=== PATIENT | male | born 1960 | race Caucasian/White ===

== ENCOUNTER 2017-02-11 15:45 | Observation (INO) ==
[2017-02-11] MEDS ORDERED: Aspirin 81 MG TAB.CHEW PO ONE (15:52)
--- NOTE | 2017-02-11 15:53 | Emergency Department Note ---
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 Patient was in the hospital accompanying his mother who was getting a heart catheterization. She did ended up with one stpent. While he was waiting to see his mother, he told the medical staff that he was not feeling well. He was diaphoretic, a little lightheaded and reports some left chest discomfort. Nursing staff took his blood pressure which was 60/40. He appeared pale and diaphoretic as well, per reports. He denies any shortness of breath or sudden headache. Denies any fall or use of anticoagulants. No prior history of cardiac ischemic disease. Denies any recent fevers or illness. No history of diabetes. He presents here to the ED in no acute distress. He states he feels a lot better. Continues to have some chest discomfort. He has a family history of cardiac disease per his mother. Denies any history of blood clots, cancer, recent long- distance travel, surgery or hospitalizations. He has a patient at the [facility]. Recently had his amlodipine increase within the past week. He states he does have these episodes were his blood pressure goes lower throughout the night, but denies any passing out Pain Scale: 0 - Related Data Home Medications Medication Instructions Recorded Confirmed HYDROcodone/Acet 5/325 mg [Fife 1 tab PO TID PRN 10/05/16 02/11/17 5-325 mg] Losartan [Cozaar] 75 mg PO DAILY 10/05/16 02/11/17 Amlodipine Besylate 10 mg PO DAILY 02/11/17 02/11/17 Aspirin Enteric Coated [Aspirin EC] 81 mg PO DAILY 02/11/17 02/11/17 Multivitamin [One Daily Essential] 1 each PO DAILY 02/11/17 02/11/17 Naproxen [Naprosyn] 500 mg PO BID 02/11/17 02/11/17 Allergies Allergy/AdvReac Type Severity Reaction Status Date / Time lisinopril Allergy Rash Verified 10/05/16 10:42 Penicillins [PCN] Allergy Hives Verified 09/21/15 13:49 All systems ED: reviewed and negative except as stated. Review of Systems: As Per HPI Constitutional: Reports: weakness. Denies: fever, chills Eyes: Denies: eye pain, vision change ENT ED: Denies: congestion, dysphagia Cardiovascular: Reports: chest pain. Denies: dyspnea on exertion Respiratory: Denies: cough, dyspnea Gastrointestinal: Reports: nausea. Denies: abdominal pain, vomiting, diarrhea Genitourinary: Denies: urgency, dysuria Musculoskeletal: Denies: back pain, neck pain Integumentary: Denies: rash, abrasion Neurological: Reports: weakness. Denies: headache, vertigo Psychiatric: Denies: anxiety, depression Endocrine: Denies: fatigue, heat or cold intolerance Past Medical History - Past Medical History Attestation: Yes The following information was validated with the patient. Source: patient Medical history: Reports: hypertension Psychiatric history: Reports: no psych history - Social History Smoking Status: Former smoker Smokeless Tobacco Status: No Alcohol use: Reports: none Physical Exam - General Limitations: no limitations General appearance: alert, in no apparent distress - Head Head exam: atraumatic, normocephalic, normal inspection - Eye Eye exam: Present: normal appearance, PERRL, EOMI - ENT ENT exam: normal exam, normal oropharynx, mucous membranes moist - Neck Neck exam: Present: normal inspection, full ROM, trachea midline - Chest Chest inspection: Present: normal inspection, symmetric chest wall rise. Absent : tenderness - Respiratory Respiratory exam: Present: normal lung sounds bilaterally. Absent: respiratory distress, wheezes - Cardiovascular Cardiovascular exam: Present: regular rate, normal rhythm, normal heart sounds - Abdominal Exam Abdominal exam: Present: soft, Non-Tender, normal bowel sounds. Absent: tenderness, distention, guarding, rebound, rigidity - Extremities Exam Extremities exam: Present: normal inspection, full ROM, normal capillary refill. Absent: tenderness, pedal edema, calf tenderness - Back Exam Back exam: Present: normal inspection, full ROM. Absent: tenderness - Neurological Exam Neurological exam: Present: alert, oriented X3, CN II-XII intact - Expanded Neurological Exam Patient oriented to: Present: person, place, time Speech: Present: fluid speech Cranial nerves: EOM function (II, III, IV, ): Normal, facial sensation (V): Normal, facial palsy (VII): Normal, gag reflex (IX): Normal, spinal accessory function (XI): Normal, tongue deviation (XII): Normal Cerebellar function: finger to nose: Normal, heel to melo: Normal Motor strength - LUE: 5/5 Motor strength - RUE: 5/5 Motor strength - LLE: 5/5 Motor strength - RLE: 5/5 Upper motor neuron exam: marie neglect: Absent bilaterally Sensory exam upper extremity: light touch: Normal Sensory exam lower extremity: light touch: Normal - Psychiatric Psychiatric exam: Present: normal affect, normal mood - Skin Skin exam: Present: warm, dry, intact, normal color. Absent: rash, cyanosis, diaphoresis Course Course Narrative: 56-year-old man with history of hypertension, former smoker in family cardiac history presents to the ED for presyncopal episode with chest discomfort. Symptoms have subsided. Describes a dull ache in the left chest. HEART score 4 pending troponin. Neurologic exam is normal without any focal neural deficits. No systolic murmurs heard on auscultation or with Valsalva maneuver. He is in otherwise no acute distress. Chest pain workup initiated. His blood pressure here is normal 130/85. Disposition pending workup. Patients in agreement with this plan. He has been given a full dose aspirin. - Reevaluation(s) Reevaluation #1: Patient is chest pain free. He is tolerating oral intake. Due to the chest discomfort will repeat a delta 3 hour troponin at 1900. Patients in agreement with this plan. He will likely need admission for his symptoms. We offered him admission and he has kindly declined. He will likely need a leaving against medical advice. Discuss risks and benefits for hospitalization vs AMA. Patients were these risks and would still like to go home. Further evaluation would include cardiac monitoring, further testing such as stress tests or echocardiogram. Patients awake alert and oriented in fully capable making medical decisions. Will readdress this upon further laboratory results. Time: 18:30 Reevaluation #2: Reevaluated patient at bedside. Symptoms have resolved. His creatinine was slightly elevated he has received 1 L bolus. He continues to feel asymptomatic. However given his symptoms earlier today recommend admission and further evaluation. He is now in agreement with admission. Impression is pre- syncope and chest pain. - Consultations Consultation #1: Spoke with on-call hospitalist nancy Randle to admit for presyncope and chest pain. No further orders at this time Time: 20:02 Vital Signs Temperature 98.1 F 02/11/17 15:46 Pulse Rate 93 02/11/17 15:46 Respiratory Rate 18 02/11/17 15:46 Blood Pressure 130/85 02/11/17 15:46 O2 Sat by Pulse Oximetry 94 02/11/17 15:46 Temperature 98.8 F 02/12/17 07:03 Pulse Rate 96 02/12/17 07:03 Respiratory Rate 20 02/12/17 07:03 Blood Pressure 127/83 02/12/17 07:03 O2 Sat by Pulse Oximetry 94 02/12/17 07:03 Oxygen Delivery Oxygen Delivery Room Air Medical Decision Making - MDM Narrative Medical decision making narrative: Patient's case was discussed with my attending physician agrees with their ED management and final disposition. They independently evaluated patient. Please refer to their attestation to this encounter for additional information. This note was generated by [employer] voice recognition software and as result grammatical or spelling errors may occur using this program. - Medical Records Medical records reviewed: Yes I reviewed the patient's medical records. - Lab Data Lab results reviewed: Yes I reviewed the patient's lab results. Result diagrams: 02/11/17 16:03 02/12/17 00:31 Lab Results 02/11/17 02/11/17 02/11/17 Range/Units 16:03 16:03 16:03 WBC 7.4 (4.3-11.1) K/mcL RBC 4.83 (4.19-5.50) M/mcL Hgb 15.1 (12.9-16.9) g/dL Hct 44.0 (37.5-50.1) % MCV 91.1 (83.0-100.0) fL MCH 31.3 (28.0-33.3) pg MCHC 34.3 (31.6-35.5) g/dL RDW 12.5 (11.5-14.5) % Plt Count 254 (140-400) K/mcL MPV 10.1 (9.4-12.4) fL Immature Gran % 0.1 (0-4) % Seg Neutrophils % 63.9 % Lymphocytes % 21.5 % Monocytes % 10.6 % Eosinophils % 3.4 % Basophils % 0.5 % Neutrophils # 4.7 (1.6-8.9) K/mcL Lymphocytes # 1.6 (0.6-4.6) K/mcL Monocytes # 0.8 (0.0-1.3) K/mcL Eosinophils # 0.3 (0.0-0.6) K/mcL Basophils # 0.0 (0.0-0.2) K/mcL Sodium 139 (136-145) mEq/L Potassium 3.8 (3.5-4.5) mEq/L Chloride 105 (98-109) mEq/L Carbon Dioxide 25 (19-29) mEq/L BUN 15 (8-26) mg/dL Creatinine 1.35 H (0.72-1.25) mg/dL Est GFR ( Amer) > 60 (> 60) Est GFR (Non-Af Amer) 55 L (> 60) BUN/Creatinine Ratio 11 (6-26) Glucose 140 H (70-99) mg/dL Calculated Osmolality 291 (280-300) Calcium 9.4 (8.6-10.8) mg/dL Troponin I 0.00 (0-0.03) ng/mL 02/11/17 Range/Units 18:48 WBC (4.3-11.1) K/mcL RBC (4.19-5.50) M/mcL Hgb (12.9-16.9) g/dL Hct (37.5-50.1) % MCV (83.0-100.0) fL MCH (28.0-33.3) pg MCHC (31.6-35.5) g/dL RDW (11.5-14.5) % Plt Count (140-400) K/mcL MPV (9.4-12.4) fL Immature Gran % (0-4) % Seg Neutrophils % % Lymphocytes % % Monocytes % % Eosinophils % % Basophils % % Neutrophils # (1.6-8.9) K/mcL Lymphocytes # (0.6-4.6) K/mcL Monocytes # (0.0-1.3) K/mcL Eosinophils # (0.0-0.6) K/mcL Basophils # (0.0-0.2) K/mcL Sodium (136-145) mEq/L Potassium (3.5-4.5) mEq/L Chloride (98-109) mEq/L Carbon Dioxide (19-29) mEq/L BUN (8-26) mg/dL Creatinine (0.72-1.25) mg/dL Est GFR ( Amer) (> 60) Est GFR (Non-Af Amer) (> 60) BUN/Creatinine Ratio (6-26) Glucose (70-99) mg/dL Calculated Osmolality (280-300) Calcium (8.6-10.8) mg/dL Troponin I 0.00 (0-0.03) ng/mL - Radiology Data Radiology results reviewed: Yes I reviewed the patient's radiology results. Chest X-Ray 02/11/17 15:53 IMPRESSION: Negative portable chest. D/ / Savage Honeycutt MD / Savage Honeycutt MD Interpreting Provider: Savage Honeycutt MD - EKG Data EKG #1 EKG attestation: Yes I reviewed and interpreted this EKG. EKG results narrative: EKG performed 1543 sinus tachycardia 95 bpm, normal axis, no ST elevation or depression, no T wave inversion, good R wave progression, intervals are within normal limits. There is some borderline voltage criteria for left ventricular hypertrophy in lead aVL ~12mm. There is no delta waves, Brugada pattern or signs of right heart strain. There is no old EKG for comparison. No acute ischemic changes. Attestation Statement - Attestation Attestation: I, Brenden Whitney, examined this patient and my medical decision-making was reviewed with the INTERNAL MEDICINE NURSE/PA/Advanced Practice Nurse/Resident Physician. I agree with the documented findings, disposition and treatment plan as described except to the extent set forth below. 56-year-old male presents emergency department after a near-syncopal sewed. Patient was at his mother's bedside after she had sustained a cardiac catheterization with stenting, he started to feel lightheaded. Nursing staff took his blood pressure and noted that it was hypotensive. Patient also noted that he had chest tightness at that time. She has cardiac risk factors of hypertension, previous smoking, family history of cardiac disease. Patient gradually improved during his stay in the emergency department with IV fluids. Initial troponin negative. Patient did have a delta troponin which was negative as well. Patient was given the option of admission versus return home to follow-up with cardiology. Patient chose to be admitted for further care and evaluation.
[2017-02-11 16:10] LABS: Basophils % 0.5 %; Eosinophils # 0.3 K/mcL (0.0-0.6); Eosinophils % 3.4 %; Hemoglobin 15.1 g/dL (12.9-16.9); Immature Granulocytes % 0.1 % (0-4); Lymphocytes # 1.6 K/mcL (0.6-4.6); Lymphocytes % 21.5 %; Mean Corpuscular HGB Conc 34.3 g/dL (31.6-35.5); Mean Corpuscular Hemoglobin 31.3 pg (28.0-33.3); Mean Corpuscular Volume 91.1 fL (83.0-100.0); Mean Platelet Volume 10.1 fL (9.4-12.4); Monocytes # 0.8 K/mcL (0.0-1.3); Monocytes % 10.6 %; Neutrophils # 4.7 K/mcL (1.6-8.9); Platelet Count 254 K/mcL (140-400); Red Blood Count 4.83 M/mcL (4.19-5.50); Red Cell Distribution Width 12.5 % (11.5-14.5); Segmented Neutrophils % 63.9 %
[2017-02-11 16:22] LABS: BUN/Creatinine Ratio 11 (6-26); Blood Urea Nitrogen 15 mg/dL (8-26); Calcium 9.4 mg/dL (8.6-10.8); Carbon Dioxide 25 mEq/L (19-29); Chloride 105 mEq/L (98-109); Glucose 140 mg/dL (70-99); Osmolality,Calculated 291 (280-300); Potassium 3.8 mEq/L (3.5-4.5); Sodium 139 mEq/L (136-145); eGFR For African Americans > 60 (> 60); eGFR For Non-African Americans 55 (> 60)
[2017-02-11] MEDS ORDERED: 0.9 % Sodium Chloride 1,000 ML IVC ONE (16:48)
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
[2017-02-11] MEDS ORDERED: Naloxone 0.4 MG/ML INJ IVP PRN (21:03)
[2017-02-11] MEDS ORDERED: 0.9 % Sodium Chloride 1,000 ML IVC SCH (21:15)
[2017-02-11] MEDS: *HR* HYDROcodone/Acet 5/325 mg TABLET PO PRN (23:02)
[2017-02-12 01:05] LABS: BUN/Creatinine Ratio 15 (6-26); Blood Urea Nitrogen 14 mg/dL (8-26); Calcium 8.9 mg/dL (8.6-10.8); Carbon Dioxide 23 mEq/L (19-29); Chloride 107 mEq/L (98-109); Glucose 107 mg/dL (70-99); Osmolality,Calculated 287 (280-300); Potassium 3.9 mEq/L (3.5-4.5); Sodium 138 mEq/L (136-145); eGFR For African Americans > 60 (> 60); eGFR For Non-African Americans > 60 (> 60)
[2017-02-12] MEDS ORDERED: amLODIPine 5 MG TABLET PO SCH (09:00)
[2017-02-12] MEDS: *HR* HYDROcodone/Acet 5/325 mg TABLET PO PRN (09:14)
[2017-02-12 12:10] VITALS: BP 125/79
--- NOTE | 2017-02-12 13:40 | Discharge Summary ---
<Chip Ibarra - Last Filed: 02/12/17 13:38> Date of Encounter: 02/12/17 Time of Encounter: 13:38 - Discharge Diagnosis (1) Pre-syncope Priority: Primary Status: Acute (2) Chest pain Priority: Secondary Status: Acute Qualifiers: Chest pain type: unspecified Qualified Code(s): R07.9 - Chest pain, unspecified (3) NIURKA (acute kidney injury) Priority: Secondary Status: Acute (4) HTN (hypertension) Priority: Secondary Status: Chronic Qualifiers: Hypertension type: unspecified Qualified Code(s): I10 - Essential (primary ) hypertension (5) Lumbago Priority: Secondary Status: Chronic Qualifiers: Chronicity: chronic Back pain laterality: left Sciatica presence: with sciatica Sciatica laterality: sciatica of left side Qualified Code(s): M54.42 - Lumbago with sciatica, left side; G89.29 - Other chronic pain; G89.29 - Other chronic pain (6) Rheumatoid arthritis Priority: Secondary Status: Chronic Qualifiers: Rheumatoid arthritis location: unspecified site Rheumatoid factor presence : unspecified presence Qualified Code(s): M06.9 - Rheumatoid arthritis, unspecified - Discharge Medications Home Medications: HYDROcodone/Acet 5/325 mg [[place] 5-325 mg] 1 tab PO TID PRN 10/05/16 [History] Losartan [Cozaar] 75 mg PO DAILY 10/05/16 [History] Amlodipine Besylate 10 mg PO DAILY 02/11/17 [History] Aspirin Enteric Coated [Aspirin EC] 81 mg PO DAILY 02/11/17 [History] Multivitamin [One Daily Essential] 1 each PO DAILY 02/11/17 [History] Naproxen [Naprosyn] 500 mg PO BID 02/11/17 [History] Allergies/Adverse Reactions: 3 Allergy/AdvReac Type Severity Reaction Status Date / Time lisinopril Allergy Rash Verified 10/05/16 10:42 Penicillins [PCN] Allergy Hives Verified 09/21/15 13:49 Procedures/tests Complete & Pending: Procedures Performed prior 72 hours Category Date Time Status EV carotid duplex imaging BI Routine Y 02/12/17 08:50 Completed EV echocardiogram Routine Y 02/12/17 08:50 Completed Date of admission: 02/11/17 20:03 [facility] care [facility] Discharging clinician: Chip Ibarra Anticipated date of discharge: 02/12/17 - Patient Status Disposition: Home, Self-Care Condition: Good Functional capacity at discharge: uses cane/walker Overall status at discharge: patient is back to baseline - Discharge Instructions Instructions: Chest Pain (DC), Syncope (DC) [facility]: [facility] [Primary Care Provider] - Additional Instructions: follow up with your primary care provider within one week of discharge please return to the emergency department if you have any episodes of syncope, chest pain, shortness of breath take all medications as prescribed. Follow-up appointments: If there is not an appointment listed below, please call your physician and schedule a follow-up appointment. If you have congestive heart failure and your symptoms return, make an appointment with your physician. Medication List: Carry an up to date list of medications you are taking at all time. We have given you an updated medication list including any new medications that you have been prescribed. Please provide that list to your primary provider Symptoms: If your condition changes or you experience any of the following symptoms, notify your physician immediately: Unusual or worsening pain, fever, persistent nausea and vomiting, bleeding, increase in swelling (especially in your legs), sudden weight gain, extreme dizziness, chest pain, increased drainage or redness from a wound or incision. Go to the emergency department if you experience a problem with breathing. Weights: If you have a history of swelling or shortness of breath, weigh yourself daily and notify your physician if you have a weight gain of two or more pounds in one day or 5 or more pounds in a week. If you experience any of the warning signs for stroke: Sudden numbness or weakness of the face, arm or leg; especially on one side of the body, sudden confusion, trouble speaking or understanding, sudden trouble seeing in one or both eyes, sudden trouble walking, dizziness, loss of balance or coordination, sudden sever headache with no cause; Call 911 or go to the emergency room. Stroke is a medical emergency. Some risk factors for stroke: Age, cigarette smoking, diabetes, excessive alcohol consumption, family history , high blood pressure, overweight, physical inactivity, prior stroke, heart attack, diagnosis of carotid artery stenosis or other artery disease. If you smoke, STOP: Smoking or tobacco use significantly increases your risk of heart and lung disease. Your chance of disease greatly increases if you continue to smoke. For more information, call the [place] tobacco quit line for smoking cessation 4- QUIT-NOW ( ) - Diet and Activity Activity: increase activity as tolerated Diet: low fat, low cholesterol Hospital course: Mr. Carney is a 56 year old male with PMHx of HTN, anxiety, eczema, Rheumatoid arthritis. patient arrived to [facility] on 02/11/17 with chief complaint of lightheadedness. He states he was lightheaded, diaphoretic, pale, and had associated blurred vision. His symptoms worsened upon standing and improved with sitting. He also complained of 3/10 chest discomfort at the left anterior chest that was non radiating. This pain lasted five minutes and resolved spontaneously. CXR was negative, and troponins x3 were negative. patient was found to have NIURKA with Cr of 1.35, but this resolved with administration of fluids. Orthostatic vitals were negative. Echocardiogram showed LVEF 60-65%, normal LV chamber size and function, mild concentric LVH, mild left ventricular diastolic dysfunction, normal RV structure and function, no significant valvular dysfunction. preliminary carotid imaging showed bilateral carotid stenosis of 60-79%. The source of his pre-syncopal episode was likely vasovagal. Patient was back to his baseline on day of discharge. He did not have any acute events while in the hospital, and was discharged in stable condition. We recommend further outpatient work up for chest pain, and possible cardiac stress testing if warranted. Plan: follow up with your primary care provider within one week of discharge please return to the emergency department if you have any episodes of syncope, chest pain, shortness of breath take all medications as prescribed. Time spent discussing smoking cessation with patient: 3 to 10 minutes - Time Spent with Patient Total time spent providing and/or coordinating discharge services: Less than 30 minutes - Constitutional Vitals: Temp Pulse Resp BP Pulse Ox 98.0 F 85 18 125/79 96 02/12/17 12:09 02/12/17 12:09 02/12/17 12:09 02/12/17 12:09 02/12/17 12:09 General appearance: Present: A&O X 3, no acute distress, answers questions appropriately - Head Head exam: Present: atraumatic, normocephalic - Neck Neck exam general surgery: Present: supple, trachea midline - Respiratory Respiratory exam: Present: CTAB - Cardiovascular Cardiovascular exam: Present: RRR, +S1, +S2. Absent: systolic murmur - GI/Abdominal GI/Abdominal exam: Present: normal bowel sounds, soft. Absent: distended, tenderness - Extremities Exam Extremities exam: Absent: cyanotic, pedal edema - Neurological Exam Neurological exam: Present: alert, oriented X3, no focal deficits - Psychiatric Psychiatric exam: Present: normal affect, normal mood - Skin Additional comments: skin breaking present on arms <Dre Fairbanks - Last Filed: 02/12/17 15:14> Date of Encounter: 02/12/17 Procedures/tests Complete & Pending: Procedures Performed prior 72 hours Category Date Time Status EV carotid duplex imaging BI Routine Y 02/12/17 08:50 Completed EV echocardiogram Routine Y 02/12/17 08:50 Completed Date of admission: 02/11/17 20:03 Primary care physician: [facility] Hospital course: Mr. Carney is a 56 year old male - Time Spent with Patient Total time spent providing and/or coordinating discharge services: - Constitutional Vitals: Temp Pulse Resp BP Pulse Ox 98.0 F 85 18 125/79 96 02/12/17 12:09 02/12/17 12:09 02/12/17 12:09 02/12/17 12:09 02/12/17 12:09 - Attending Attestation near syncope, likely vasovagal I examined this patient and my medical decision-making was reviewed with the Resident Physician. I agree with the documented findings, disposition and treatment plan as described except to the extent set forth below.
--- NOTE | 2017-02-14 15:50 | Electrocardiograph Report ---
[place] [id number] Test Date: 2017-02-11 Pat Name: Jorge Carney Department: [id number] Room: 3B23 Gender: M Hoseman: TMR : [id number] Requested By: Lee Singleton Order Number: [id number] Reading MD: Brenden Ernandez Measurements Intervals [place] Rate: 95 P: 41 CO: 176 QRS: -3 QRSD: 80 T: 5 QT: 325 QTc: 378 Interpretive Statements SINUS RHYTHM MINIMAL VOLTAGE CRITERIA FOR LVH, CONSIDER NORMAL VARIANT Electronically Signed On 02-14-2017 15:48:31 EST by Brenden Ernandez
== END 2017-02-12 15:08 | disposition home or self-care (01) ==
LOC: 3BNU 15:45 → EMEROO 15:45 → SUATTDRO 20:03 → 3BNU 20:29
PROVIDERS: ADMIT Internal Medicine Hematology & Oncology; ATTEND Internal Medicine

== ENCOUNTER 2019-02-22 10:05 | Inpatient (IN) ==
[2019-02-22] MEDS ORDERED: Gadolinium Contrast Agent (WT Based) IV PRN (11:54)
[2019-02-22] MEDS ORDERED: *HR* FentaNYL (PF) 100 MCG/2 ML VIAL IVP ONE (11:55)
[2019-02-22 12:29] LABS: eGFR For African Americans > 60 (> 60); eGFR For Non-African Americans > 60 (> 60)
[2019-02-22] MEDS ORDERED: *HR* LORazepam 2 MG/ML VIAL IVP ONE (13:22)
[2019-02-22] MEDS ORDERED: Dexamethasone 4 MG/ML VIAL IVP ONE (15:12)
[2019-02-22] MEDS ORDERED: *HR* HYDROmorphone (PF) 1 MG/ML SYRINGE IVP ONE (15:18)
[2019-02-22] MEDS ORDERED: Ondansetron 4 MG/2 ML VIAL IVP PRN (17:28)
[2019-02-22] MEDS ORDERED: Naloxone 0.4 MG/ML INJ IVP PRN ×2 (17:28→17:30)
[2019-02-22] MEDS ORDERED: *HR* HYDROmorphone (PF) 1 MG/ML SYRINGE IVP PRN (17:32)
[2019-02-22] MEDS ORDERED: tiZANidine 4 MG TABLET PO PRN (17:32)
[2019-02-22] MEDS ORDERED: amLODIPine 5 MG TABLET PO ONE (17:32)
[2019-02-22] MEDS ORDERED: *HR* Labetalol 20 MG/4 ML SYRINGE IVP PRN (17:32)
[2019-02-22 17:53] LABS: INR 1.1; Prothrombin Time 12.4 Seconds (9.4-12.1)
[2019-02-22 17:56] LABS: Activated Partial Thrombo Time 36.2 Seconds (26.0-36.0)
[2019-02-22 18:01] LABS: Basophils % 0.2 %; Eosinophils # 0.1 K/mcL (0.0-0.6); Eosinophils % 1.2 %; Hematocrit 42.6 % (37.5-50.1); Hemoglobin 14.5 g/dL (12.9-16.9); Immature Granulocytes % 0.3 % (0-4); Lymphocytes # 0.6 K/mcL (0.6-4.6); Lymphocytes % 6.2 %; Mean Corpuscular Hemoglobin 31.3 pg (28.0-33.3); Mean Corpuscular Volume 91.8 fL (83.0-100.0); Mean Platelet Volume 9.9 fL (9.4-12.4); Monocytes # 0.2 K/mcL (0.0-1.3); Monocytes % 2.4 %; Neutrophils # 8.1 K/mcL (1.6-8.9); Platelet Count 374 K/mcL (140-400); Red Blood Count 4.64 M/mcL (4.19-5.50); Red Cell Distribution Width 12.2 % (11.5-14.5); Segmented Neutrophils % 89.7 %
[2019-02-22 18:13] LABS: Alanine Aminotransferase 56 Units/L (7-52); Albumin 4.3 g/dL (3.5-5.7); Albumin/Globulin Ratio 1.2 (1.1-2.2); Alkaline Phosphatase 145 Units/L (34-104); Aspartate Amino Transferase 37 Units/L (13-39); BUN/Creatinine Ratio 9 (6-26); Bilirubin,Direct 0.1 mg/dL (0.0-0.2); Bilirubin,Indirect 0.4 mg/dL (0.0-1.0); Bilirubin,Total 0.5 mg/dL (0.3-1.0); Blood Urea Nitrogen 7 mg/dL (6-20); Calcium 10.2 mg/dL (8.6-10.3); Carbon Dioxide 25 mEq/L (23-29); Chloride 104 mEq/L (98-107); Globulin 3.7 g/dL (2.4-3.5); Glucose 237 mg/dL (70-105); Osmolality,Calculated 290 (280-300); Potassium 4.1 mEq/L (3.5-5.1); Sodium 137 mEq/L (136-145); eGFR For African Americans > 60 (> 60); eGFR For Non-African Americans > 60 (> 60)
[2019-02-22] MEDS: *HR* Heparin 5,000 UNIT/ML VIAL SQ SCH (19:26)
[2019-02-22] MEDS: Ringers Solution, Lactated 1,000 ML IVC SCH (23:26)
[2019-02-23 01:43] LABS: Basophils % 0.2 %; Hematocrit 41.5 % (37.5-50.1); Hemoglobin 14.6 g/dL (12.9-16.9); Immature Granulocytes % 0.6 % (0-4); Lymphocytes # 0.5 K/mcL (0.6-4.6); Lymphocytes % 7.8 %; Mean Corpuscular HGB Conc 35.2 g/dL (31.6-35.5); Mean Corpuscular Volume 88.1 fL (83.0-100.0); Mean Platelet Volume 10.4 fL (9.4-12.4); Monocytes # 0.2 K/mcL (0.0-1.3); Monocytes % 3.3 %; Neutrophils # 5.6 K/mcL (1.6-8.9); Platelet Count 438 K/mcL (140-400); Red Blood Count 4.71 M/mcL (4.19-5.50); Red Cell Distribution Width 12.1 % (11.5-14.5); Segmented Neutrophils % 88.1 %; White Blood Count 6.4 K/mcL (4.3-11.1)
[2019-02-23 02:03] LABS: BUN/Creatinine Ratio 10 (6-26); Blood Urea Nitrogen 7 mg/dL (6-20); Calcium 10.2 mg/dL (8.6-10.3); Carbon Dioxide 24 mEq/L (23-29); Chloride 103 mEq/L (98-107); Glucose 188 mg/dL (70-105); Osmolality,Calculated 285 (280-300); Sodium 136 mEq/L (136-145); eGFR For African Americans > 60 (> 60); eGFR For Non-African Americans > 60 (> 60)
[2019-02-23] MEDS: *HR* Heparin 5,000 UNIT/ML VIAL SQ SCH ×2 (05:46→17:09)
[2019-02-23] MEDS: Ketorolac 15 MG/ML VIAL IVP PRN (09:22)
[2019-02-23] MEDS: Ringers Solution, Lactated 1,000 ML IVC SCH (13:55)
[2019-02-23] MEDS ORDERED: Dexamethasone 10 MG/ML VIAL IVP ONE (17:59)
[2019-02-24] MEDS: *HR* Heparin 5,000 UNIT/ML VIAL SQ SCH (06:25)
[2019-02-24] MEDS ORDERED: Ondansetron 4 MG/2 ML VIAL ONE ×2 (07:15→10:16)
[2019-02-24] MEDS ORDERED: *HR* Succinylcholine 200 MG/10 ML VIAL IVP ONE ×2 (07:15→10:16)
[2019-02-24] MEDS ORDERED: Dexamethasone 4 MG/ML VIAL ONE ×2 (07:16→10:16)
[2019-02-24] MEDS ORDERED: *HR* Propofol 200 MG/20 ML VIAL IVP ONE ×2 (07:16→10:16)
[2019-02-24] MEDS ORDERED: *HR* Midazolam HCl 2 MG/2 ML VIAL ONE ×2 (07:16→10:16)
[2019-02-24] MEDS ORDERED: *HR* Remifentanil 1 MG VIAL IVP ONE ×2 (07:16→16:18)
[2019-02-24] MEDS ORDERED: *HR* FentaNYL (PF) 100 MCG/2 ML VIAL ONE ×2 (07:16→10:16)
[2019-02-24] MEDS ORDERED: Lidocaine -MPF 2% 2 ML VIAL ONE ×2 (07:16→10:16)
[2019-02-24] MEDS ORDERED: Lidocaine HCL 4 ML Topical Solution (Laryng-O-Jet Kit Sterile Pak) TP ONE ×2 (07:24→11:02)
[2019-02-24] MEDS ORDERED: Bacitracin 50,000 UNIT, Polymyxin B Sulfate 500,000 UNIT, Sodium Chloride IRRigation 1,... IR ONE (08:15)
[2019-02-24 08:35] LABS: Troponin I < 0.03 ng/mL (< 0.04)
[2019-02-24 08:38] LABS: Estimated Average Glucose 140 mg/dl
[2019-02-24] MEDS: Ketorolac 15 MG/ML VIAL IVP PRN (09:50)
[2019-02-24] MEDS ORDERED: *HR* FentaNYL (PF) 100 MCG/2 ML VIAL IVP PRN (10:55)
[2019-02-24] MEDS ORDERED: *HR* Midazolam HCl 2 MG/2 ML VIAL IVP PRN (10:55)
[2019-02-24] MEDS ORDERED: *HR* Meperidine 25 MG/ML SYRINGE IVP PRN (10:55)
[2019-02-24] MEDS ORDERED: *HR* OxyCODONE Immed Rel 5 MG TABLET PO PRN (10:55)
[2019-02-24] MEDS ORDERED: *HR* Promethazine 25 MG/ML VIAL IVP PRN (10:55)
[2019-02-24] MEDS ORDERED: Acetaminophen IV 1,000 MG/100 ML INFUS..BTL IVPB ONE (10:55)
[2019-02-24] MEDS ORDERED: diazePAM 10 MG TABLET PO ONE (11:28)
[2019-02-24] MEDS ORDERED: *HR* Phenylephrine 10 MG/ML VIAL ONE (13:36)
[2019-02-24] MEDS ORDERED: Clindamycin 900 MG/50 ML 900 MG/50 ML IV.SOLN IVPB ONE ×2 (13:45→13:58)
[2019-02-24] MEDS ORDERED: Propofol 500 MG/50 ML INFUS..BTL ONE ×3 (14:27→15:08)
[2019-02-24] MEDS ORDERED: *HR* HYDROMORPHONE 2 MG/ML VIAL ONE (17:23)
[2019-02-24] MEDS ORDERED: *HR* PHENYLEPHRINE 1,000 MCG/10 ML SYRINGE IVP ONE (17:31)
[2019-02-24] MEDS ORDERED: Clindamycin 600 MG/50 ML 600 MG/50 ML IV.SOLN IVPB ONE (17:36)
[2019-02-24] MEDS: *HR* HYDROmorphone (PF) 1 MG/ML SYRINGE IVP PRN ×2 (18:48→19:00)
[2019-02-24] MEDS ORDERED: Dexamethasone 10 MG/ML VIAL IVP ONE (19:01)
[2019-02-24] MEDS ORDERED: *HR* HYDROcodone/Acet 5/325 mg TABLET PO PRN (19:55)
[2019-02-24] MEDS ORDERED: Clobetasol Propionate 0.05% 15 GM Cream Tube TP PRN (19:55)
[2019-02-24] MEDS ORDERED: Ringers Solution, Lactated 1,000 ML IVC SCH (19:55)
[2019-02-24] MEDS ORDERED: Lidocaine 4% CREAM (LMX) 5 GM TP PRN (19:55)
[2019-02-24] MEDS ORDERED: Ondansetron 4 MG/2 ML VIAL IVP PRN (19:55)
[2019-02-24] MEDS ORDERED: Naloxone 0.4 MG/ML INJ IVP PRN (19:55)
[2019-02-24] MEDS ORDERED: FluocinoNIDE 0.05% CRM 15 GM TUBE TP PRN (19:55)
[2019-02-24] MEDS ORDERED: NON-FORMULARY MEDICATION 1 EACH EACH (Cinnamon Bark [Cinnamon] 500 MG) PO PRN (19:55)
[2019-02-24] MEDS: *HR* OxyCODONE Immed Rel 5 MG TABLET PO PRN (23:36)
[2019-02-24] MEDS: Acetaminophen 325 MG TABLET PO PRN (23:38)
[2019-02-25] MEDS ORDERED: Clindamycin 600 MG/50 ML 600 MG/50 ML IV.SOLN IVPB SCH
[2019-02-25] MEDS: tiZANidine 4 MG TABLET PO PRN ×2 (00:36→09:26)
[2019-02-25] MEDS: *HR* OxyCODONE Immed Rel 5 MG TABLET PO PRN ×4 (06:41→23:35)
[2019-02-25] MEDS: Cholecalciferol (D-3) 1,000 UNIT (25MCG) TABLET PO SCH (07:55)
[2019-02-25] MEDS: Aspirin Enteric Coated 81 MG Tablet PO SCH (07:55)
[2019-02-25] MEDS: amLODIPine 5 MG TABLET PO SCH (07:55)
[2019-02-25] MEDS ORDERED: NON-FORMULARY MEDICATION 1 EACH EACH (Garlic 1,000 MG) PO SCH (09:00)
[2019-02-25] MEDS ORDERED: Chloraseptic Spray 177 ML BOTTLE MM PRN (10:45)
[2019-02-25] MEDS: diazePAM 5 MG TABLET PO PRN (11:36)
[2019-02-25] MEDS ORDERED: Ipratropium/Albuterol Neb 3 ML IH PRN (14:41)
[2019-02-25] MEDS: tiZANidine 4 MG TABLET PO SCH ×3 (16:51→21:46)
[2019-02-25] MEDS: Acetaminophen 325 MG TABLET PO PRN (18:04)
[2019-02-26] MEDS: diazePAM 5 MG TABLET PO PRN (01:41)
[2019-02-26] MEDS: *HR* OxyCODONE Immed Rel 5 MG TABLET PO PRN ×2 (07:10→12:08)
[2019-02-26] MEDS: Cholecalciferol (D-3) 1,000 UNIT (25MCG) TABLET PO SCH (09:11)
[2019-02-26] MEDS: Aspirin Enteric Coated 81 MG Tablet PO SCH (09:11)
[2019-02-26] MEDS: amLODIPine 5 MG TABLET PO SCH (09:11)
[2019-02-26] MEDS: tiZANidine 4 MG TABLET PO SCH ×2 (09:11→13:31)
[2019-02-26] MEDS ORDERED: FLU Vac QV 19-20 (6Month+)/PF 0.5 ML SYRINGE IM ONE (11:47)
[2019-02-26 12:44] VITALS: BP 143/89
== END 2019-02-26 13:31 | DRG 473 ==
LOC: EMEROOARM 10:05 → 3BNU 10:05 → SUATTDRO 19:55 → OBSVTOIN 19:55 → 3BNU 20:30 → 3NENU 02-24 16:20
PROVIDERS: ADMIT Internal Medicine; ATTEND Internal Medicine
PROC: SPICORP (2019-02-24 08:15)